=== PATIENT | male | born 1980 | race Caucasian/White ===

== ENCOUNTER 2022-01-03 16:14 | Outpatient (CLI) | payer BC, SELFPAY ==
[2022-01-03 09:15] LABS: Cholesterol* 133 mg/dL (90-199)
[2022-01-03 09:16] LABS: Glucose* 101 mg/dL (60-115); HDL Cholesterol* 91 mg/dL (>=40); LDL Cholesterol Calculated 30 mg/dL (<100); Triglycerides* 58 mg/dL (40-149)
== END 2022-01-03 16:15 | disposition home or self-care (01) ==
PROVIDERS: PCP Family Medicine; Visit Provider Family Medicine
DX: Z13.1 Encounter for screening for diabetes mellitus (principal); Z13.6 Encounter for screening for cardiovascular disorders
CPT/HCPCS: 80061; 82947

== ENCOUNTER 2023-07-28 14:30 | Outpatient (RCR) | payer BC, SELFPAY | END 2023-11-25 23:59 | disposition home or self-care (01) | PROVIDERS: PCP Family Medicine; Visit Provider Orthopaedic Surgery | DX: M25.811 Other specified joint disorders, right shoulder (principal); Z51.89 Encounter for other specified aftercare | CPT/HCPCS: 97110; 97161 ==